=== PATIENT | female | born 1990 | race Caucasian/White ===

== ENCOUNTER 2024-10-24 09:55 | Emergency (ER) | payer OTHER, SELFPAY ==
[2024-10-24] VITALS (7 sets, daily range): BP systolic 114–125; BP diastolic 60–77; PULSE 89–116; RESP 22; TEMP 36.8; O2SAT 96–100; BMI 22.1
--- NOTE | 2024-10-24 10:04 | ED_ITS ---
HPI - General Adult General Chief complaint: Vaginal Bleeding Stated complaint: possible Miscarriage Time Seen by Provider: 10/24/24 10:02 History of Present Illness HPI narrative: 33-year-old female not known to be , history of endometriosis diagnosed by laparoscopy in [place], relocated to the [facility], taking oral contraceptive hormones since July 2024, now with your regular spotting and passive or small amount of tissue last few days. No fevers or chills. Denies abdominal pain. No nausea or vomiting or diarrhea. Related Data Allergies Allergy/AdvReac Type Severity Reaction Status Date / Time No Known Drug Allergies Allergy Verified 10/24/24 10:20 Patient History Social History Smoking Status: Never smoker Exam Narrative Exam Narrative: GENERAL: Well-developed patient, in mild distress. HEAD: Atraumatic. Normocephalic. EYES: Pupils equal round and reactive. Extraocular motions intact. No scleral icterus. No injection or drainage. ENT: Nose without bleeding, purulent drainage. Throat without erythema, tonsillar hypertrophy or exudate. Airway patent. NECK: Trachea midline. Non tender CARDIOVASCULAR: Regular rate and rhythm without murmurs, gallops, or rubs. RESPIRATORY: Clear to auscultation. Breath sounds equal bilaterally. No wheezes, rales, or rhonchi. GASTROINTESTINAL: Abdomen soft, non-tender, nondistended. EXTREMITIES: No edema or joint tenderness. BACK: Nontender without deformity or crepitance. No flank tenderness. NEURO: AOx3. Motor functions grossly nonfocal SKIN: No rash or erythema of visible areas Initial Vital Signs Initial Vital Signs: Vital Signs Temperature 98.3 F 10/24/24 10:00 Pulse Rate 116 H 10/24/24 10:00 Respiratory Rate 22 10/24/24 10:00 Blood Pressure 125/77 10/24/24 10:00 Pulse Oximetry 100 10/24/24 10:00 Oxygen Delivery Method Room Air 10/24/24 10:00 Course Orders Ordered: Discontinued Medications Lactated Ringer's (Lactated Ringers) 1,000 mls @ 1,000 mls/hr IV BOLUS ONE Stop: 10/24/24 11:36 Last Infusion: 10/24/24 11:25 Dose: Infused Documented By: Admin: 10/24/24 10:43 Dose: 1,000 mls/hr Documented By: BRENT Ondansetron HCl (Ondansetron 4 Mg/2 Ml Inj) 4 mg IV NOW ONE Stop: 10/24/24 10:38 Last Admin: 10/24/24 10:44 Dose: 4 mg Documented By: SPF Vital Signs Vital signs: Vital Signs - 8 hr 10/24/24 10:00 10/24/24 10:17 10/24/24 10:30 Temperature 98.3 F Pulse Rate 116 H 104 H Respiratory Rate 22 Blood Pressure 125/77 124/60 Pulse Oximetry 100 100 Oxygen Delivery Method Room Air 10/24/24 10:30 10/24/24 11:00 10/24/24 11:00 Temperature Pulse Rate 102 H 89 Respiratory Rate Blood Pressure 114/71 Pulse Oximetry 99 100 Oxygen Delivery Method Room Air 10/24/24 11:30 10/24/24 11:30 Temperature Pulse Rate 99 H Respiratory Rate Blood Pressure 120/71 Pulse Oximetry 99 Oxygen Delivery Method Medical Decision Making Lab Data 10/24/24 10:15 10/24/24 10:15 Labs: Lab Results 10/24/24 10/24/24 10/24/24 Range/Units 10:03 10:15 11:39 WBC 6.7 (4.5-11.0) X10^3/uL RBC 4.70 (4.0-5.2) X10^6/uL Hgb 13.7 (12.0-16.0) g/dL Hct 40.4 (36-46) % MCV 86.1 (80-100) fL MCH 29.2 (26-34) PG MCHC 33.9 (30-36) % RDW 13.1 (11.6-14.8) % Plt Count 281 (150-400) X10^3/uL Neut % (Auto) 53.7 (50-75) % Lymph % (Auto) 36.2 (25-40) % [place] % (Auto) 6.9 (3-14) % Eos % (Auto) 2.6 (2-4) % Baso % (Auto) 0.6 (0-2) % Neut # (Auto) 3600 (4194-8435) /uL Lymph # (Auto) 2400 (7185-2025) /uL [place] # (Auto) 500 (0-900) /uL Eos # (Auto) 200 (0-450) /uL Baso # (Auto) 0 (0-100) /uL Sodium 139 (137-145) mmol/L Potassium 4.1 (3.4-5.1) mmol/L Chloride 103 (98-107) mmol/L Carbon Dioxide 25 (22-32) mmol/L BUN 12 (7-17) mg/dL Creatinine 0.74 (0.52-1.04) mg/dL Estimated GFR > 60 (>60) mL/min BUN/Creatinine Ratio 16.2 (6-22) Glucose 100 (70-100) mg/dL Calcium 10.0 (8.4-10.2) mg/dL Total Bilirubin 0.6 (0.2-1.3) mg/dL AST 26 (14-36) IU/L ALT 23 (<35) IU/L Alkaline Phosphatase 75 (38-126) U/L Total Protein 8.4 H (6.3-8.2) g/dL Albumin 5.0 (3.5-5.0) g/dL Globulin 3.4 (1.7-4.1) g/dL Albumin/Globulin Ratio 1.5 (1.0-2.8) HCG, Quant < 2.39 mIU/mL Urine Color Yellow Urine Appearance Clear Urine pH 6.5 (4.5-8.0) Ur Specific [place] <=1.005 (1.000-1.035) Urine Protein Negative (Negative) Urine Glucose (UA) Negative (Negative) g/dL Urine Ketones Negative (NEGATIVE) Urine Occult Blood 2+ H (Negative) Urine Nitrate Negative (Negative) Urine Bilirubin Negative (NEGATIVE) Urine Urobilinogen 0.2 (0.2) E.U./dL Ur Leukocyte Esterase 1+ H (NEGATIVE) Urine RBC 1-5/hpf 1-5/hpf (0-5/HPF) Urine WBC 5-10/hpf H 5-10/hpf H (0-5/HPF) Ur Squamous Epith Cells 10-30 /hpf H 1-5 /hpf D (0-5/HPF) Urine Bacteria Many (>30) H None seen (None) Ur Culture Indicated? Specimen cultured Vol Urine Centrifuged 10ml (spun) 10ml (spun) Blood Type B Negative Point of Care Testing Test Results Negative Urine Dip Bedside Urine Glucose Negative Bedside Urine Bilirubin - Negative Bedside Urine Ketone - Negative Urine Specific [place] 1.010 Bedside Urine Occult Blood + Bedside Urine pH 8.0 Bedside Urine Protein - Negative Bedside Urine Urobilinogen - Negative Bedside Urine Nitrite - Negative Bedside Urine Leukocytes - Negative Esterase Point of care testing: Point of Care Testing Test Results Negative Urine Dip Bedside Urine Glucose Negative Bedside Urine Bilirubin - Negative Bedside Urine Ketone - Negative Urine Specific [place] 1.010 Bedside Urine Occult Blood + Bedside Urine pH 8.0 Bedside Urine Protein - Negative Bedside Urine Urobilinogen - Negative Bedside Urine Nitrite - Negative Bedside Urine Leukocytes - Negative Esterase Imaging Data US Pelvis: Radiologist's Impression: [address] [address] Ultrasound Report Signed Patient: Karin Coles MR#: [id number] : 1990 Acct:[id number] Age/Sex: 33 / Date of Service: 10/24/24 Loc: ED Accession Number: [id number] Procedure: US pelvic complete Ordering Provider: Andrei Jean-Baptiste MD PROCEDURE: US PELVIC COMPLETE INDICATIONS: vaginal bleeding, passage of tissue, HCG pending TECHNIQUE: Real-time scanning was performed of the pelvic organs, with image documentation. Additional endovaginal scanning was necessary due to incomplete visualization of the adnexal and endometrial structures by transabdominal scanning. COMPARISON: None. FINDINGS: Uterus: Uterus is anteverted and normal in size at 8.6 x 2.9 x 4.2 cm. The myometrium is homogeneous. The endometrium measures 2 mm combined thickness. Ovaries: The right ovary measures 3.5 x 1.8 x 2.8 cm, with a calculated ovarian volume of 9 cc. The left ovary measures 2.7 x 1.6 x 3.1 cm, with a calculated ovarian volume of 7 cc. The ovaries have a normal sonographic appearance. Less than 12 follicles can be seen in each ovary. No adnexal masses are seen. Other: No pathologic free abdominal or pelvic fluid. IMPRESSION: Pelvic ultrasound without acute sonographic abnormalities. Unremarkable appearance of the uterus and endometrium. No ovarian/adnexal mass lesions. We strive to produce accurate, complete, and clear reports of imaging services. To assist us in improving patient care, this report was composed using standard report templates and voice recognition software. Therefore, it may contain abnormal punctuation, insertions and/or omissions. Occasional wrong-word or sound-alike substitutions may occur. Though we review the report and make efforts to correct it, we do recommend that the report be read carefully in proper context to recognize any text inaccuracies. Dictated by: Arnold Haines M.D. on 10/24/2024 at 12:22 Approved by: Arnold Haines M.D. on 10/24/2024 at 12:23 [facility] Narrative Medical decision making narrative: 33-year-old female with history of endometriosis, irregular spotting on oral contraceptive medication, last known menstrual period August 2024, passage of small amount of tissue couple of days ago, afebrile, sirs screen negative, no abdominal discomfort, some nausea. Referred from walk-in clinic for concern for possible ectopic workup. Patient not known to be . Serum hCG and other labs pending. HCG negative. Ultrasound pelvis ordered. CCUA#1 contaminated. Repeat CCUA#2 specimen better, no obvious UTI, no UCx indicated. US Pelvis showed no acute changes. See radiology report. Printed copy report given to patient with discussion of findings. Irregular vaginal bleeding, hx endometriosis, has no local [employer] provider after moving from [place]. Hemodynamically stable. Afebrile. Hb normal range. No acute changes US Pelvis imaging. CCUA noncontaminated soecimen showed no UTI. DC home. FU as outpatient with local gynecology Dr Grace. Clinic contact info given. Continue current OCP regimen for now. Return precaustions discussed. Discharge Plan Departure Patient Disposition: Home Clinical Impression: Vaginal bleeding Instructions: DI for Vaginal Bleeding Activity Restrictions/Additional Instructions: History of endometriosis diagnosed in [place] by reported laparoscopy, taking oral contraceptive medication hormones since July 2024, now with recent days vaginal bleeding/spotting, and passage of some small amount of tissue. Not known to be . tests at home negative. test here negative as well. Hemoglobin level normal, no evidence for blood loss anemia. No fever. No significant tenderness on examination. Ultrasound of the pelvis was done, no abnormalities noted. Follow up with local Gynecology, contact clinic information provided to establish local care, also for your endometriosis follow up as well. Unclear etiology of small amount of bloody tissue that you showed photo on your phone, no intrauterine abnormalities found for now. Unclear if this might have been sloughing of the endometrium or some other cause. Further follow up with local gynecology. Return to this/nearest emergency department for any change worsening symptoms or any concerns prior. Referrals: Shannen Grace MD [Physician] - Stand Alone Forms: Patient Portal/API/Survey
--- NOTE | 2024-10-24 10:26 | DI.US.S_ITS ---
PROCEDURE: US PELVIC COMPLETE INDICATIONS: vaginal bleeding, passage of tissue, HCG pending TECHNIQUE: Real-time scanning was performed of the pelvic organs, with image documentation. Additional endovaginal scanning was necessary due to incomplete visualization of the adnexal and endometrial structures by transabdominal scanning. COMPARISON: None. FINDINGS: Uterus: Uterus is anteverted and normal in size at 8.6 x 2.9 x 4.2 cm. The myometrium is homogeneous. The endometrium measures 2 mm combined thickness. Ovaries: The right ovary measures 3.5 x 1.8 x 2.8 cm, with a calculated ovarian volume of 9 cc. The left ovary measures 2.7 x 1.6 x 3.1 cm, with a calculated ovarian volume of 7 cc. The ovaries have a normal sonographic appearance. Less than 12 follicles can be seen in each ovary. No adnexal masses are seen. Other: No pathologic free abdominal or pelvic fluid. IMPRESSION: Pelvic ultrasound without acute sonographic abnormalities. Unremarkable appearance of the uterus and endometrium. No ovarian/adnexal mass lesions. We strive to produce accurate, complete, and clear reports of imaging services. To assist us in improving patient care, this report was composed using standard report templates and voice recognition software. Therefore, it may contain abnormal punctuation, insertions and/or omissions. Occasional wrong-word or sound-alike substitutions may occur. Though we review the report and make efforts to correct it, we do recommend that the report be read carefully in proper context to recognize any text inaccuracies. Dictated by: Arnold Haines M.D. on 10/24/2024 at 12:22 Approved by: Arnold Haines M.D. on 10/24/2024 at 12:23
[2024-10-24 10:27] LABS: Add Manual Diff / Slide Review NO; Basophils Absolute Auto 0 /uL (0-100); Basophils Percent Auto 0.6 % (0-2); Eosinophils Absolute Auto 200 /uL (0-450); Eosinophils Percent Auto 2.6 % (2-4); Hematocrit 40.4 % (36-46); Hemoglobin 13.7 g/dL (12.0-16.0); Lymphocytes Absolute Auto 2400 /uL (1100-4500); Lymphocytes Percent Auto 36.2 % (25-40); Mean Corpuscular HGB Conc 33.9 % (30-36); Mean Corpuscular Hemoglobin 29.2 PG (26-34); Mean Corpuscular Volume 86.1 fL (80-100); Monocytes Absolute Auto 500 /uL (0-900); Monocytes Percent Auto 6.9 % (3-14); Neutrophils Absolute Auto 3600 /uL (1500-7000); Neutrophils Percent Auto 53.7 % (50-75); Platelet Count 281 X10^3/uL (150-400); Red Cell Distribution Width 13.1 % (11.6-14.8); White Blood Cell Count 6.7 X10^3/uL (4.5-11.0)
[2024-10-24 10:38] LABS: Alanine Aminotransferase 23 IU/L (<35); Albumin Globulin Ratio 1.5 (1.0-2.8); Alkaline Phosphatase 75 U/L (38-126); Aspartate Aminotransferase 26 IU/L (14-36); BUN Creatinine Ratio 16.2 (6-22); Bilirubin Total 0.6 mg/dL (0.2-1.3); Blood Urea Nitrogen 12 mg/dL (7-17); Carbon Dioxide 25 mmol/L (22-32); Chloride 103 mmol/L (98-107); Estimated Glomerular Filt Rate > 60 mL/min (>60); Globulin 3.4 g/dL (1.7-4.1); Glucose 100 mg/dL (70-100); HEMOLYSIS < 15 (0-50); Potassium 4.1 mmol/L (3.4-5.1); Sodium 139 mmol/L (137-145); Total Protein 8.4 g/dL (6.3-8.2)
[2024-10-24] MEDS: LACTATED RINGERS 1,000 ML 1000 ML IV (10:43)
[2024-10-24] MEDS: ONDANSETRON 4 MG/2 ML INJ IV (10:44)
[2024-10-24 10:46] LABS: Urine Volume 10mL (spun)
[2024-10-24 10:50] LABS: Bacteria Urine Many (>30); RBC Urine 1-5/HPF (0-5/HPF); WBC Urine 5-10/HPF (0-5/HPF)
[2024-10-24 10:51] LABS: Culture Indicated Urine Specimen Cultured; Squamous Epithelial Cell Urine 10-30 /HPF (0-5/HPF)
[2024-10-24 10:55] LABS: HCG Quantitative /Beta subunit < 2.39 mIU/mL
[2024-10-24 13:00] LABS: Appearance Urine UA CLEAR; Bilirubin Urine UA NEGATIVE (NEGATIVE); Color Urine UA YELLOW; Glucose Urine UA NEGATIVE (Negative); Ketones Urine UA NEGATIVE (NEGATIVE); Leukocyte Esterase Urine UA 1+ (NEGATIVE); Nitrite Urine UA NEGATIVE (Negative); Occult Blood Urine UA 2+ (Negative); Protein Urine UA NEGATIVE (Negative); Specific Gravity Urine UA <=1.005 (1.000-1.035); Urobilinogen Urine UA 0.2 E.U./dL (0.2); pH Urine UA 6.5 (4.5-8.0)
[2024-10-24 13:04] LABS: Bacteria Urine None Seen; RBC Urine 1-5/HPF (0-5/HPF); Squamous Epithelial Cell Urine 1-5 /HPF (0-5/HPF); Urine Volume 10mL (spun); WBC Urine 5-10/HPF (0-5/HPF)
== END 2024-10-24 13:06 | disposition home or self-care (01) ==
PROVIDERS: Emergency Provider Emergency Medicine
DX: N93.9 Abnormal uterine and vaginal bleeding, unspecified (principal)
CPT/HCPCS: 36415; 76856; 80053; 81001; 81003; 81015; 81025; 84702; 85025; 86900; 86901; 87086; 96361; 96374; 99284; J2405

== ENCOUNTER → 2025-05-18 09:53 | Outpatient (CLI) | payer OTHER, SELFPAY ==
[2025-05-18 10:31] LABS: Add Manual Diff / Slide Review NO; Hematocrit 37.9 % (36-46); Hemoglobin 13.1 g/dL (12.0-16.0); Lymphocytes Absolute Auto 1700 /uL (1100-4500); Mean Corpuscular HGB Conc 34.7 % (30-36); Mean Corpuscular Hemoglobin 29.2 PG (26-34); Mean Corpuscular Volume 84.0 fL (80-100); Platelet Count 238 X10^3/uL (150-400)
[2025-05-18 10:52] LABS: INR 1.1 (0.9-1.3); Prothrombin Time 12.6 SECONDS (9.4-12.5)
[2025-05-18 11:17] LABS: Alanine Aminotransferase 15 IU/L (<35); Albumin 4.7 g/dL (3.5-5.0); Albumin Globulin Ratio 1.6 (1.0-2.8); Alkaline Phosphatase 69 U/L (38-126); Blood Urea Nitrogen 10 mg/dL (7-17); Calcium 9.0 mg/dL (8.4-10.2); Carbon Dioxide 25 mmol/L (22-32); Chloride 104 mmol/L (98-107); Estimated Glomerular Filt Rate > 60 mL/min (>60); Globulin 2.9 g/dL (1.7-4.1); Glucose 85 mg/dL (70-99); HEMOLYSIS < 15 (0-50); Potassium 4.3 mmol/L (3.4-5.1); Sodium 136 mmol/L (137-145); Total Protein 7.6 g/dL (6.3-8.2)
== END ==
PROVIDERS: PCP Family Medicine; Referring Provider Family Medicine; Visit Provider Family Medicine
DX: R23.3 Spontaneous ecchymoses (principal)
CPT/HCPCS: 36415; 80053; 85025; 85610